=== PATIENT | male | born 1975 | race Caucasian/White ===

== ENCOUNTER 2024-08-21 01:46 | Emergency (ER) | payer OTHER, SELFPAY ==
[2024-08-21 01:48] VITALS: BP 185/120
[2024-08-21 02:06] VITALS: BMI 52.8
[2024-08-21 02:14] VITALS: BP 144/94
--- NOTE | 2024-08-21 02:28 | ED.GENMED ---
History of Present Illness
General
Chief Complaint: Nose Bleed
Source: patient and family
Exam Limitations: none
Time Seen by Provider: 08/21/24 02:00
Nursing documentation reviewed up to this point in time: agreed with
History of Present Illness
History of Present Illness:
49-year-old male presents with nosebleed he was out drinking all day with family and friends fell walking down the street did a [employer] plant, has bleeding from his left greater than right nose, he apparently had bypass surgery a few months ago at
[facility] he lives in [place] is on a blood thinner is not sure which one no hip pain ambulating a bit unsteady family states that he was just drunk and they could control the bleeding they would not have brought him
Past History
Past History
ED Past Medical History: CAD and HTN
ED Past Surgical History: Cardiac
Social History
Tobacco: Non-smoker
Alcohol: Occasional
Drug: None
Personal:
Living: with family
Employment: Employed
Review of Systems
Review of Systems
All Other Systems: Not applicable
EENT: Reports other (Nosebleed)
Phy Exam
Physical Exam
Physical Exam:
Physical Exam
General: Vaccinated male cooperative
Neck: Bleeding from the left nare, abrasion over the frenulum
Heart: s1/s2 regular rate and rhythm, no murmur. equal radial pulses.
Lungs: no acute respiratory distress. clear bilaterally
Abdomen: Nontender
Neuro: alert and oriented. no focal neurological deficits
Skin: no rash
Psychiatric:cooperative
Extremities: Pain with range of motion of the hips
Course
Orders/Labs/Results
Orders:
Orders
08/21/24 02:13
CT Cervical Spine W/o Iv Contr Urgent
Comment:
Reason For Exam: fall drunk
CT Facial Bones W/o Iv Contras Urgent
Comment:
Reason For Exam: fall nose bleed
CT Head W/o Iv Contrast Urgent
Comment:
Reason For Exam: fall drunk
Cardiac Monitoring- Treatment ONCE
08/21/24 02:14
Electrocardiogram (*1) Urgent
Reason for Study: Syncope
EKG- Treatment ONCE
08/21/24 03:04
Basic Metabolic Panel Urgent
Troponin I Urgent
08/21/24 03:05
Complete Blood Count/With Diff Urgent
08/21/24 03:46
Magnesium Urgent
Potassium Urgent
08/21/24 04:44
Troponin I Urgent
Abnormal Lab Results
08/21/24 08/21/24 08/21/24
03:04 03:05 04:44
WBC 11.7 H 10^3/uL
(4.8-10.8)
RDW 17.2 H %
(11.5-14.5)
Abs Immat Gran (auto) 0.1 H 10^3/uL
(0-0.05)
Absolute Neuts (auto) 8.0 H 10^3/uL
(1.4-6.5)
Absolute Monos (auto) 1.1 H 10^3/uL
(0.1-0.6)
Immature Gran % 0.9 H %
(0-0.5)
Lymphocytes % 18.3 L %
(20.5-51.1)
Carbon Dioxide 16 L mmol/L
(22-30)
Glucose 113 H mg/dl
(70-99)
Troponin I 0.053 H* ng/ml 0.053 H* ng/ml
08/21/24 03:05
08/21/24 03:46
Vital Signs
Initial and Last Documented VS:
Initial Vital Signs
Pulse Resp BP Pulse Ox
80 22 185/120 96
08/21/24 01:48 08/21/24 01:48 08/21/24 01:48 08/21/24 01:48
Last Documented Vital Signs
Pulse Resp BP Pulse Ox
63 18 144/70 96
08/21/24 05:00 08/21/24 02:06 08/21/24 05:00 08/21/24 05:00
MDM/Problems Addressed
Differential Diagnosis Includes:
Nosebleed nasal fracture intracerebral hemorrhage C-spine injury facial bone fracture
MDM/Problems Addressed:
Nosebleed
Chronic conditions affecting care:
Hypertension CAD
Acute Exacerbation and/or Progression of Chronic Illness:
Hypertension CAD
*Radiology
Radiology exam reviewed: radiology read reviewed (Vision report noted)
*Pulse Oximetry
Patient hypoxic: no
*Critical Care Note
Total Time (30-74mins, 75-104mins- exclusive of procedures): Not Applicable
Update Note
Update Note:
Intoxicated male cooperative alert oriented will check CT head cervical spine facial bones, try to get his bleeding under control, check EKG
EKG noted looks like an old inferior NH none in our system patient denies chest pain or shortness of breath although he is not the best historian at this time due to being intoxicated does have CAD have requested records from [facility] the
meantime we will check labs electrolytes and troponin denies any chest pain or shortness of breath now will place on the monitor
3:45 AM troponin noted EKG from [facility] reviewed from 6 months ago had inferior ST elevations multivessel disease on cath sent for bypass
Has no chest pain or shortness of breath will trend his troponin
5:35 AM patient in no acute distress, conversant with myself and his family smiling joking in no acute distress tells me he feels great, second troponin is flat, CT reports noted
ED Attending Note
-
Portions of this chart may have been created with voice recognition software.� Occasional wrong word or��sound alike� substitutions may have occurred due to the inherent limitations of voice recognition software.
Discharge Plan
Departure
Patient Disposition: Home (Routine Discharge)
Date of Disposition: 08/21/24
Time of Disposition: 05:36
Patient with high blood pressure during this ER visit?: No
Condition: Good
Discharge Problem:
Fall, Abrasion
Instructions: Head Injury in Adults (DC), Nosebleeds (DC), Skin Abrasions (DC)
Referrals:
Kameron Sorensen MD [Family Provider] - Next open appointment
Activity Restrictions/Additional Instructions:
Ice to areas that hurt, antibiotic ointment to your lip and nose
Tylenol or ibuprofen for pains
Return to the ER if chest pain shortness of breath headache persistent bleeding or any other concerns
Take your medications as prescribed
Limit your alcohol intake
Interventions
Interventions:
*Risk Screen - Suicide Last Done: 08/21/24 01:48
*General Assessment Last Done: 08/21/24 02:06
*Neglect/Abuse Screening Last Done: 08/21/24 01:48
*ED COVID-19 Vaccine History Last Done: 08/21/24 02:06
ED-Skin Assessment Last Done: 08/21/24 02:06
ED- Neurological Assessment Last Done: 08/21/24 02:06
ED-Musculoskeletal Assessment Last Done: 08/21/24 02:06
ED-EENT Assessment Last Done: 08/21/24 02:06
Discharge Date and Time
Print Language: BELIZEAN
[2024-08-21 03:12] LABS: % Basophils 0.6 % (0-2); % Eosinophils 2.2 % (0-6); % Immature Granulocytes 0.9 % (0-0.5); % Lymphocytes 18.3 % (20.5-51.1); Absolute Basophils 0.1 10^3/uL (0-0.2); Absolute Eosinophils 0.3 10^3/uL (0-0.7); Absolute Immature Granulocytes 0.1 10^3/uL (0-0.05); Absolute Lymphocytes 2.1 10^3/uL (1.2-3.4); Absolute Monocytes 1.1 10^3/uL (0.1-0.6); Hematocrit 48.2 % (39.0-52.0); Hemoglobin 16.6 g/dL (13.0-18.0); Mean Corp Hgb Conc. 34.4 g/dL (33.0-37.0); Mean Corpuscular Hgb 28.9 pg (27.0-31.0); Mean Platelet Volume 8.8 fL (7.4-10.4); Nucleated Red Blood Cells % 0 % (-); Platelet Count 205 10^3/uL (130-400); Red Blood Cell Count 5.74 10^6/uL (4.70-6.10); Red Cell Dist. Width 17.2 % (11.5-14.5); White Blood Cell Count 11.7 10^3/uL (4.8-10.8)
[2024-08-21 03:32] LABS: Blood Urea Nitrogen 20 mg/dl (9-20); Calcium 8.8 mg/dl (8.4-10.2); Carbon Dioxide 16 mmol/L (22-30); Chloride 103 mmol/L (98-107); Estimated Creatinine Clearance 101 ml/min; Glucose 113 mg/dl (70-99); Sodium 138 mmol/L (135-145); eGFR > 60.00
[2024-08-21 03:37] VITALS: BP 121/74
[2024-08-21 03:46] LABS: Troponin I 0.053 ng/ml
[2024-08-21 04:00] VITALS: BP 144/75
[2024-08-21 04:31] LABS: Magnesium 2.3 mg/dl (1.6-2.3); Potassium 4.6 mmol/L (3.5-5.1)
[2024-08-21 05:00] VITALS: BP 144/70
[2024-08-21 05:16] LABS: Troponin I 0.053 ng/ml
== END 2024-08-21 05:41 | disposition home or self-care (01) ==
LOC: EMR 01:46
PROVIDERS: EMERGENCY PHYSICIAN Emergency Medicine; FAMILY PHYSICIAN Internal Medicine
DX: S00.81XA Abrasion of other part of head, initial encounter (principal); F10.129 Alcohol abuse with intoxication, unspecified; R04.0 Epistaxis; W19.XXXA Unspecified fall, initial encounter; I25.10 Atherosclerotic heart disease of native coronary artery without angina pectoris; I10 Essential (primary) hypertension; Z95.1 Presence of aortocoronary bypass graft; Z79.01 Long term (current) use of anticoagulants
CPT/HCPCS: 99284; 70450; 70486; 72125; 80048; 83735; 84132; 84484; 85025; 93005